=== PATIENT | female | born 1945 | race Caucasian/White ===

== ENCOUNTER 2022-01-02 07:36 | Emergency (ER) | payer OTHER ==
[2022-01-02 08:05] VITALS: BP 148/78; PULSE 92; TEMP 98.2; BMI 25.4
== END 2022-01-02 08:27 | disposition home or self-care (01) ==
LOC: JER 07:36
DX: K08.89 Other specified disorders of teeth and supporting structures (principal); K05.01 Acute gingivitis, non-plaque induced
CPT/HCPCS: 99281-25

== ENCOUNTER 2022-10-18 11:01 | Emergency (ER) | payer OTHER ==
[2022-10-18 11:13] VITALS: BMI 26.2
[2022-10-18] MEDS ORDERED: ACETAMINOPHEN 1000 MG/100 ML BAG IVPB ONE (11:14)
[2022-10-18] MEDS ORDERED: SODIUM CHLORIDE 0.9% 500 ML INFUS.BAG IV ONE (11:14)
[2022-10-18] MEDS ORDERED: FAMOTIDINE 20 MG/50 ML IVPB 20 MG/50 ML MG IVPB ONE ×2 (11:15→11:31)
[2022-10-18] MEDS ORDERED: ACETAMINOPHEN INJECTION 100 ML IVPB ONE (11:31)
[2022-10-18] MEDS ORDERED: METOCLOPRAMIDE HCL INJECTION 10 MG/2 ML VIAL IVPUSH ONE (11:36)
[2022-10-18] MEDS ORDERED: METOCLOPRAMIDE HCL INJECTION 10 MG/2 ML VIAL ONE (11:56)
[2022-10-18 12:38] LABS: HEMATOCRIT 40.3 % (32.4-45.2); HEMOGLOBIN 13.9 GM/dL (10.7-15.3); MCH 29.2 pg (25.7-33.7); MCHC 34.4 g/dl (32.0-36.0); MEAN CELL VOLUME 84.7 fl (80-96); MEAN PLT VOLUME 7.8 fl (7.5-11.1); PLATELET COUNT 246 10^3/uL (134-434); RBC 4.75 M/mm3 (3.60-5.2); RDW 13.9 % (11.6-15.6); WHITE BLOOD COUNT 11.4 K/mm3 (4.0-10.0)
[2022-10-18 12:42] LABS: EPI CELLS 18 /uL (0-25.1); HYALINE CASTS 1 /uL (0-3.1); PH,URINE 6.5 (5.0-8.0); URINE APPEARANCE CLEAR; URINE BACTERIA 15 /uL (0-1359); URINE BILIRUBIN NEGATIVE (NEGATIVE); URINE COLOR YELLOW; URINE GLUCOSE (UA) NEGATIVE (NEGATIVE); URINE KETONE NEGATIVE (NEGATIVE); URINE LEUK ESTERASE TRACE (NEGATIVE); URINE NITRITE NEGATIVE (NEGATIVE); URINE PROTEIN TRACE (NEGATIVE); URINE RBC 21 /uL (0-23.9); URINE UROBILINOGEN 0.2 mg/dL (0.2-1.0); URINE WBC 16 /uL (0-25.8)
[2022-10-18 12:59] LABS: ALBUMIN 3.8 g/dl (3.4-5.0); BLOOD UREA NITROGEN 13.6 mg/dL (7-18); CALCIUM 8.8 mg/dL (8.5-10.1)
[2022-10-18 13:02] LABS: CREATININE 0.8 mg/dL (0.55-1.3)
[2022-10-18 13:03] LABS: BILIRUBIN,TOTAL 0.6 mg/dL (0.2-1)
[2022-10-18 13:04] LABS: TOT PROT 7.3 g/dl (6.4-8.2)
[2022-10-18 13:29] LABS: ANISOCYTOSIS 0; HELMET CELLS 0; HOWELL-JOLLY BODIES 0; MACROCYTOSIS 0; OVALOCYTE 0; ROULEAU 0; SICKELED CELLS 0; TARGET CELLS 0; TEAR DROP CELLS 0; TOXIC GRANULATION 0
[2022-10-18] MEDS ORDERED: CEFTRIAXONE 1 GM in DEXTROSE 5%-WATER - 100 ML IVPB ONE (16:49)
[2022-10-18] MEDS ORDERED: CEFTRIAXONE 1 GM/50 ML BAG ONE (17:10)
[2022-10-18 17:24] VITALS: RESP 18
[2022-10-18 18:24] VITALS: BP 159/84; PULSE 89; TEMP 98
== END 2022-10-18 18:20 | disposition home or self-care (01) ==
LOC: JER 11:01
PROC: 3E033GC Introduction of Other Therapeutic Substance into Peripheral Vein, Percutaneous Approach (ICD-10-PCS; principal; 2022-10-18)
DX: N39.0 Urinary tract infection, site not specified (principal)
CPT/HCPCS: 0241U-QW; 36415; 71045-TC-FY; 74177-TC; 80053; 81003; 83690; 83735; 84439; 84443; 84484; 85025; 87086; 93005; 93010; 99285-25; Q9967

== ENCOUNTER 2023-06-29 18:24 | Emergency (ER) | payer OTHER ==
[2023-06-29 18:39] VITALS: PULSE 75; BMI 27.8
[2023-06-29] MEDS ORDERED: SODIUM CHLORIDE 0.9% 500 ML INFUS.BAG IV ONE (19:44)
[2023-06-29] MEDS ORDERED: METOCLOPRAMIDE HCL INJECTION 10 MG/2 ML VIAL IVPUSH ONE (19:44)
[2023-06-29] MEDS ORDERED: METOCLOPRAMIDE HCL INJECTION 10 MG/2 ML VIAL ONE (19:57)
[2023-06-29 20:09] LABS: BASO % 0.3 % (0-2.0); EOS % 0.5 % (0-4.5); HEMATOCRIT 34.3 % (32.4-45.2); HEMOGLOBIN 12.1 GM/dL (10.7-15.3); LYMPH % 8.2 % (8-40); MCH 28.9 pg (25.7-33.7); MCHC 35.4 g/dl (32.0-36.0); MEAN CELL VOLUME 81.8 fl (80-96); MEAN PLT VOLUME 7.4 fl (7.5-11.1); MONO % 8.9 % (3.8-10.2); NEUT % 82.1 % (42.8-82.8); PLATELET COUNT 216 10^3/uL (134-434); RDW 13.8 % (11.6-15.6); WHITE BLOOD COUNT 6.6 K/mm3 (4.0-10.0)
[2023-06-29 20:20] LABS: POTASSIUM 3.7 mmol/L (3.5-5.1)
[2023-06-29 20:22] LABS: ALBUMIN 3.4 g/dl (3.4-5.0); BLOOD UREA NITROGEN 9.3 mg/dL (7-18)
[2023-06-29 20:25] LABS: CREATININE 0.9 mg/dL (0.55-1.3)
[2023-06-29 20:27] LABS: BILIRUBIN,TOTAL 0.5 mg/dL (0.2-1); TOT PROT 6.7 g/dl (6.4-8.2)
[2023-06-29 21:43] VITALS: BP 131/78; RESP 16; TEMP 98.8
== END 2023-06-29 22:09 | disposition home or self-care (01) ==
LOC: JER 18:24
PROC: 3E033GC Introduction of Other Therapeutic Substance into Peripheral Vein, Percutaneous Approach (ICD-10-PCS; principal; 2023-06-29)
DX: R11.2 Nausea with vomiting, unspecified (principal); R51.9 Headache, unspecified; R10.13 Epigastric pain
CPT/HCPCS: 36415; 71045-TC-FY; 80053; 84484; 85025; 93005; 93010; 99285-25

== ENCOUNTER 2023-10-03 11:02 | Emergency (ER) | payer OTHER ==
[2023-10-03 11:27] VITALS: BP 148/79; PULSE 63; RESP 18; TEMP 98.6; BMI 26.2
== END 2023-10-03 14:24 | disposition home or self-care (01) ==
LOC: JERFT 11:02
DX: S63.641A Sprain of metacarpophalangeal joint of right thumb, initial encounter (principal); X50.9XXA Other and unspecified overexertion or strenuous movements or postures, initial encounter; Y92.017 Garden or yard in single-family (private) house as the place of occurrence of the external cause
CPT/HCPCS: 73110-TC-RT-FY; 73130-TC-RT-FY; 99283-25

== ENCOUNTER 2024-05-04 07:47 | Emergency (ER) | payer OTHER ==
[2024-05-04 07:59] VITALS: RESP 18; TEMP 98.4; BMI 28.0
[2024-05-04] MEDS ORDERED: LOSARTAN POTASSIUM 50 MG TABLET ONE (09:15)
[2024-05-04 09:16] LABS: BASO % 0.7 % (0-2.0); EOS % 1.6 % (0-4.5); HEMOGLOBIN 12.7 GM/dL (10.7-15.3); LYMPH % 20.4 % (8-40); MCH 28.9 pg (25.7-33.7); MCHC 34.3 g/dl (32.0-36.0); MEAN CELL VOLUME 84.3 fl (80-96); MEAN PLT VOLUME 8.1 fl (7.5-11.1); MONO % 5.7 % (3.8-10.2); NEUT % 71.6 % (42.8-82.8); PLATELET COUNT 240 10^3/uL (134-434); RBC 4.39 M/mm3 (3.60-5.2); RDW 13.9 % (11.6-15.6); WHITE BLOOD COUNT 7.8 K/mm3 (4.0-10.0)
[2024-05-04] MEDS ORDERED: ACETAMINOPHEN INJECTION 100 ML ONE (09:16)
[2024-05-04 09:20] LABS: INR 0.94 (0.83-1.09); PROTHROMBIN TIME (PATIENT) 10.8 SEC (9.7-13.0)
[2024-05-04 09:23] LABS: ACTIVATED PTT 19.4 SECONDS (25.2-36.5)
[2024-05-04 09:26] LABS: POTASSIUM 4.1 mmol/L (3.5-5.1)
[2024-05-04] MEDS: ACETAMINOPHEN 1000 MG/100 ML BAG IVPB ONE (09:27)
[2024-05-04 09:28] LABS: CALCIUM 8.6 mg/dL (8.5-10.1)
[2024-05-04 09:29] LABS: ALBUMIN 3.6 g/dl (3.4-5.0); BLOOD UREA NITROGEN 11.4 mg/dL (7-18); MAGNESIUM 2.3 mg/dL (1.8-2.4)
[2024-05-04] MEDS: LOSARTAN POTASSIUM 50 MG TABLET PO ONE (09:30)
[2024-05-04 09:32] LABS: CREATININE 0.8 mg/dL (0.55-1.3); PHOSPHOROUS 3.7 mg/dL (2.5-4.9)
[2024-05-04 09:33] LABS: BILIRUBIN,TOTAL 0.6 mg/dL (0.2-1); TOT PROT 6.7 g/dl (6.4-8.2)
[2024-05-04] MEDS: BENZONATATE 200 MG CAPSULE PO ONE (11:08)
[2024-05-04 11:11] VITALS: BP 173/70; PULSE 78
== END 2024-05-04 11:45 | disposition home or self-care (01) ==
LOC: JER 07:47
PROC: 3E033NZ Introduction of Analgesics, Hypnotics, Sedatives into Peripheral Vein, Percutaneous Approach (ICD-10-PCS; principal; 2024-05-04)
DX: R05.2 Subacute cough (principal); J20.9 Acute bronchitis, unspecified; J02.9 Acute pharyngitis, unspecified; R09.81 Nasal congestion; R07.9 Chest pain, unspecified; Z20.822 Contact with and (suspected) exposure to COVID-19
CPT/HCPCS: 0241U-QW; 36415; 71045-TC-FY; 80053; 83735; 84100; 84439; 84443; 84484; 85025; 85610; 85730; 93005; 93010; 99285-25; J0131

== ENCOUNTER 2024-05-24 09:26 | Emergency (ER) | payer OTHER ==
[2024-05-24 09:43] VITALS: RESP 20; TEMP 97.6; BMI 28.0
[2024-05-24 10:32] VITALS: BP 148/89; PULSE 75
[2024-05-24] MEDS: SODIUM CHLORIDE 0.9% 1000 ML INFUS.BAG IV ONE (12:21)
[2024-05-24 12:36] LABS: BASO % 0.6 % (0-2.0); EOS % 1.7 % (0-4.5); HEMATOCRIT 38.3 % (32.4-45.2); HEMOGLOBIN 12.6 GM/dL (10.7-15.3); LYMPH % 19.6 % (8-40); MCH 28.5 pg (25.7-33.7); MCHC 32.9 g/dl (32.0-36.0); MEAN CELL VOLUME 86.7 fl (80-96); MEAN PLT VOLUME 8.2 fl (7.5-11.1); NEUT % 73.1 % (42.8-82.8); PLATELET COUNT 254 10^3/uL (134-434); RBC 4.42 M/mm3 (3.60-5.2); RDW 13.9 % (11.6-15.6); WHITE BLOOD COUNT 7.7 K/mm3 (4.0-10.0)
[2024-05-24 14:32] LABS: ALBUMIN 3.6 g/dl (3.4-5.0); BLOOD UREA NITROGEN 8.4 mg/dL (7-18); CALCIUM 8.8 mg/dL (8.5-10.1)
[2024-05-24 14:35] LABS: CREATININE 0.8 mg/dL (0.55-1.3)
[2024-05-24 14:37] LABS: BILIRUBIN,TOTAL 0.5 mg/dL (0.2-1); TOT PROT 6.8 g/dl (6.4-8.2)
== END 2024-05-24 15:17 | disposition home or self-care (01) ==
LOC: JER 09:26
DX: R42 Dizziness and giddiness (principal); R19.7 Diarrhea, unspecified; R11.0 Nausea; Z20.822 Contact with and (suspected) exposure to COVID-19
CPT/HCPCS: 0241U-QW; 36415; 71046-TC-FY; 80053; 84484; 85025; 93005; 93010; 99285-25